=== PATIENT | male | born 1995 | race Caucasian/White ===

== ENCOUNTER 2020-12-14 07:08 | Outpatient (CLI) | payer BC, SELFPAY ==
[2015-06-16 12:23] VITALS: BMI 26.6
== END 2020-12-14 08:00 | disposition home or self-care (01) ==
LOC: IMMUN 12-18 07:39
PROVIDERS: Referring Provider Family Medicine; Visit Provider Family Medicine
DX: Z23 Encounter for immunization (principal)
CPT/HCPCS: 0031A; 91303